=== PATIENT | male | born 1950 | race Caucasian/White ===

== ENCOUNTER 2022-08-16 21:04 | Emergency (ER) | payer MEDICARE ==
[2022-08-16 21:12] VITALS: TEMP 97
[2022-08-16 22:04] LABS: Basophils # (A) 0.1 k/uL (0-0.2); Basophils % (A) 1 %; Eosinophils # (A) 0.3 k/uL (0-0.7); Eosinophils % (A) 4 %; HCT 48.3 % (39.0-53.0); HGB 16.7 gm/dL (13.0-17.5); Lymphocytes # (A) 1.3 k/uL (1.0-4.8); Lymphocytes % (A) 18 %; MCH 31.7 pg (25.0-35.0); MCHC 34.6 g/dL (31.0-37.0); MCV 91.6 fL (80.0-100.0); Mean Platelet Volume 7.1; Monocytes # (A) 0.4 k/uL (0-1.0); Monocytes % (A) 5 %; Neutrophils # (A) 5.1 k/uL (1.3-7.7); Neutrophils % (A) 70 %; Platelet Count 242 k/uL (150-450); RBC 5.27 m/uL (4.30-5.90); RDW 12.9 % (11.5-15.5); WBC 7.2 k/uL (3.8-10.6)
[2022-08-16 22:13] LABS: INR 0.9 (<1.2); Partial Thromboplastin Time 26.5 sec (22.0-30.0); Prothrombin Time 9.7 sec (9.0-12.0)
[2022-08-16 22:16] LABS: ALT 19 U/L (4-49); AST 24 U/L (17-59); African American GFR (CKD) >90 (>60 ml/min/1.73 sqM); Albumin 4.6 g/dL (3.5-5.0); Alkaline Phosphatase 99 U/L (38-126); Anion Gap 10 mmol/L; Blood Urea Nitrogen 12 mg/dL (9-20); Calcium 9.4 mg/dL (8.4-10.2); Carbon Dioxide 26 mmol/L (22-30); Chloride 106 mmol/L (98-107); Glucose 93 mg/dL (74-99); Lipase 90 U/L (23-300); Magnesium 2.2 mg/dL (1.6-2.3); Non-African American GFR(CKD) >90 (>60 ml/min/1.73 sqM); Potassium 3.6 mmol/L (3.5-5.1); Sodium 142 mmol/L (137-145); Total Bilirubin 0.5 mg/dL (0.2-1.3); Total Protein 7.5 g/dL (6.3-8.2)
--- NOTE | 2022-08-16 23:14 | CT ---
EXAMINATION TYPE: CT abdomen pelvis w con DATE OF EXAM: 08/16/2022 COMPARISON: None HISTORY: rectal bleeding CT DLP: 897 mGycm Automated exposure control for dose reduction was used. CONTRAST: Performed with IV Contrast, patient injected with 100 mL of Isovue 300. Images obtained from the diaphragm to the floor the pelvis with the IV contrast. The lung bases are clear of infiltrate. No pleural effusion. There is minimal subsegmental atelectasi s at the lung bases. Heart size is normal. No pericardial effusion. There is 1 cm cyst in the anterio r left lobe of the liver. Gallbladder appears normal. The bile ducts are not dilated. Spleen appears normal. There is no pancreatic mass. The stomach is intact. There is no adrenal mass. Kidneys show satisfactory contrast opacification. No hydronephrosis. Ureter s are not dilated. No retroperitoneal adenopathy. The bladder distends smoothly. No inguinal hernia. No free fluid in the pelvis. No pelvic mass. Appendix is posterior and appears normal. There is fat-c ontaining 4 cm umbilical hernia. There is no mesenteric edema. No ascites or free air. No sign of bowel obstruction. There is some cir cumferential thickening of the wall of the rectum with some mild adjacent fat stranding. The lumbar vertebra show fairly normal alignment. There is a minimal degenerative first-degree L4-5 s pondylolisthesis. No lumbar compression fracture. The bony pelvis is intact. There is degenerative cy st formation in the left acetabulum. There is acetabular spur formation. IMPRESSION: There is some wall thickening of the rectum with fat stranding and consistent with focal colitis. Normal appendix. Large fat-containing umbilical hernia. There are a few sigmoid diverticula without diverticulitis.
[2022-08-16] MEDS ORDERED: AMOXIC-POT CLAV 875-125MG 1 EACH TAB PO STA (23:52)
--- NOTE | 2022-08-16 23:56 | ED ---
GI Bleed HPI - General Chief complaint: GI Bleed Stated complaint: rectal issues Time Seen by Provider: 08/16/22 21:10 Source: patient, family Mode of arrival: ambulatory Limitations: no limitations - History of Present Illness Initial comments: 72-year-old male with past history of hypertension presents to the emergency department with reported rectal bleeding. States that he has had intermittent bleeding for the past 8 months. It is also associated with some constipation. States that as of 3 weeks ago the bleeding has become more frequent. Admits to some dark clotted blood with some bright blood. Denies any abdominal pain or rectal pain. He has never had a colonoscopy. No history of colon cancer. He denies fevers, nausea or vomiting. He does not take any anticoagulants. Admits to a good appetite. No weight loss. Denies any abdominal bloating. No numbness, tingling or weakness in his legs. Denies any lightheadedness, shortness of breath or dizziness. He has no primary care physician and has not had his issue addressed. No other alleviating, precipitating or modifying factors - Related Data Previous Rx's Medication Instructions Recorded Amoxic-Pot Clav 875-125Mg 1 tab PO BID #14 tab 08/16/22 [Augmentin 875-125] Allergies Allergy/AdvReac Type Severity Reaction Status Date / Time No Known Allergies Allergy Verified 08/16/22 21:12 Review of Systems ROS Statement: Those systems with pertinent positive or pertinent negative responses have been documented in the HPI. ROS Other: All systems not noted in ROS Statement are negative. Past Medical History Past Medical History: Hypertension Additional Past Surgical History / Comment(s): LEFT ARM REVISION Past Psychological History: No Psychological Hx Reported Smoking Status: Never smoker Past Alcohol Use History: None Reported General Exam Limitations: no limitations General appearance: alert, in no apparent distress Head exam: Present: atraumatic, normocephalic, normal inspection Eye exam: Present: normal appearance, PERRL, EOMI. Absent: scleral icterus, conjunctival injection, periorbital swelling ENT exam: Present: normal exam, mucous membranes moist Neck exam: Present: normal inspection. Absent: tenderness, meningismus, lymphadenopathy Respiratory exam: Present: normal lung sounds bilaterally. Absent: respiratory distress, wheezes, rales, rhonchi, stridor Cardiovascular Exam: Present: regular rate, normal rhythm, normal heart sounds. Absent: systolic murmur, diastolic murmur, rubs, gallop, clicks GI/Abdominal exam: Present: soft, normal bowel sounds. Absent: distended, tenderness, guarding, rebound, rigid Rectal exam: Present: normal rectal tone, heme (+) stool, black stool, hemorr hoids. Absent: mass, tenderness Extremities exam: Present: normal inspection, full ROM, normal capillary refill. Absent: tenderness, pedal edema, joint swelling, calf tenderness Back exam: Present: normal inspection Neurological exam: Present: alert, oriented X3, CN II-XII intact Psychiatric exam: Present: normal affect, normal mood Skin exam: Present: warm, dry, intact, normal color. Absent: rash Course Vital Signs 08/16/22 08/16/22 08/16/22 21:08 22:00 22:02 Temperature 97 F L Pulse Rate 77 84 Respiratory 20 16 Rate Blood Pressure 195/93 178/100 O2 Sat by Pulse 97 95 Oximetry 08/17/22 00:12 Temperature Pulse Rate 68 Respiratory 18 Rate Blood Pressure 173/97 O2 Sat by Pulse 97 Oximetry Medical Decision Making - Medical Decision Making Upon arrival patient was placed in room 7. A thorough history and physical exam was performed. Rectal exam is performed which does demonstrate a small amount of red stool. Laboratory studies are conducted which demonstrates a hemoglobin of 16.7. Occult is positive. CT of the abdomen and pelvis is performed which demonstrated some thickening around the rectum concerning for possible colitis. I did discuss results with the patient. He remained pain-free and symptom-free. States that he would prefer to follow up outpatient for his bleeding that has been going on for the past 8 months. He would like to follow up with Dr. Santana who is a colorectal surgeon out of [facility]. The patient is provided with information for Dr. Jay as well as for Dr. santana. He'll be placed on antibiotics for the questionable focal colitis. He is to call to make an appointment as he needs a colonoscopy for further workup. Patient understood this. Instructed to return to the emergency department should he have any new or worsening symptoms or increased bleeding. Patient discharged home in stable condition - Lab Data Result diagrams: 08/16/22 21:58 08/16/22 21:58 Lab Results 08/16/22 08/16/22 08/16/22 Range/Units 21:58 21:58 21:58 WBC 7.2 (3.8-10.6) k/uL RBC 5.27 (4.30-5.90) m/uL Hgb 16.7 (13.0-17.5) gm/dL Hct 48.3 (39.0-53.0) % MCV 91.6 (80.0-100.0) fL MCH 31.7 (25.0-35.0) pg MCHC 34.6 (31.0-37.0) g/dL RDW 12.9 (11.5-15.5) % Plt Count 242 (150-450) k/uL MPV 7.1 Neutrophils % 70 % Lymphocytes % 18 % Monocytes % 5 % Eosinophils % 4 % Basophils % 1 % Neutrophils # 5.1 (1.3-7.7) k/uL Lymphocytes # 1.3 (1.0-4.8) k/uL Monocytes # 0.4 (0-1.0) k/uL Eosinophils # 0.3 (0-0.7) k/uL Basophils # 0.1 (0-0.2) k/uL PT 9.7 (9.0-12.0) sec INR 0.9 (<1.2) APTT 26.5 (22.0-30.0) sec Sodium (137-145) mmol/L Potassium (3.5-5.1) mmol/L Chloride (98-107) mmol/L Carbon Dioxide (22-30) mmol/L Anion Gap mmol/L BUN (9-20) mg/dL Creatinine (0.66-1.25) mg/dL Est GFR (CKD-EPI)AfAm (>60 ml/min/1.73 sqM) Est GFR (CKD-EPI)NonAf (>60 ml/min/1.73 sqM) Glucose (74-99) mg/dL Plasma Lactic Acid [place] (0.7-2.0) mmol/L Calcium (8.4-10.2) mg/dL Magnesium (1.6-2.3) mg/dL Total Bilirubin (0.2-1.3) mg/dL AST (17-59) U/L ALT (4-49) U/L Alkaline Phosphatase (38-126) U/L Troponin I (0.000-0.034) ng/mL Total Protein (6.3-8.2) g/dL Albumin (3.5-5.0) g/dL Lipase (23-300) U/L Stool Occult Blood Positive (Negative) 08/16/22 08/16/22 08/16/22 Range/Units 21:58 21:58 21:58 WBC (3.8-10.6) k/uL RBC (4.30-5.90) m/uL Hgb (13.0-17.5) gm/dL Hct (39.0-53.0) % MCV (80.0-100.0) fL MCH (25.0-35.0) pg MCHC (31.0-37.0) g/dL RDW (11.5-15.5) % Plt Count (150-450) k/uL MPV Neutrophils % % Lymphocytes % % Monocytes % % Eosinophils % % Basophils % % Neutrophils # (1.3-7.7) k/uL Lymphocytes # (1.0-4.8) k/uL Monocytes # (0-1.0) k/uL Eosinophils # (0-0.7) k/uL Basophils # (0-0.2) k/uL PT (9.0-12.0) sec INR (<1.2) APTT (22.0-30.0) sec Sodium 142 (137-145) mmol/L Potassium 3.6 (3.5-5.1) mmol/L Chloride 106 (98-107) mmol/L Carbon Dioxide 26 (22-30) mmol/L Anion Gap 10 mmol/L BUN 12 (9-20) mg/dL Creatinine 0.69 (0.66-1.25) mg/dL Est GFR (CKD-EPI)AfAm >90 (>60 ml/min/1.73 sqM) Est GFR (CKD-EPI)NonAf >90 (>60 ml/min/1.73 sqM) Glucose 93 (74-99) mg/dL Plasma Lactic Acid [place] 0.9 (0.7-2.0) mmol/L Calcium 9.4 (8.4-10.2) mg/dL Magnesium 2.2 (1.6-2.3) mg/dL Total Bilirubin 0.5 (0.2-1.3) mg/dL AST 24 (17-59) U/L ALT 19 (4-49) U/L Alkaline Phosphatase 99 (38-126) U/L Troponin I <0.012 (0.000-0.034) ng/mL Total Protein 7.5 (6.3-8.2) g/dL Albumin 4.6 (3.5-5.0) g/dL Lipase 90 (23-300) U/L Stool Occult Blood (Negative) Disposition Clinical Impression: Hematochezia, GI bleed, Colitis Disposition: HOME SELF-CARE Condition: Stable Instructions (If sedation given, give patient instructions): Gastrointestinal Bleeding (ED), Colitis (ED) Additional Instructions: You need a colonoscopy. Please call Dr. Santana or Dr. Jay for a colonoscop y. Take the antibiotics. Return for any new or worsening symptoms. Dr. Santana - Prescriptions: Amoxic-Pot Clav 875-125Mg [Augmentin 875-125] 1 tab PO BID #14 tab Is patient prescribed a controlled substance at d/c from ED?: No Referrals: Bertrand Jay MD [STAFF PHYSICIAN] - 1-2 days Time of Disposition: 23:55
[2022-08-17 00:13] VITALS: BP 173/97; PULSE 68; RESP 18
== END 2022-08-17 00:13 | disposition home or self-care (01) ==
LOC: EC 21:04
DX: K62.5 Hemorrhage of anus and rectum (principal); K52.9 Noninfective gastroenteritis and colitis, unspecified; I10 Essential (primary) hypertension
CPT/HCPCS: 36415; 80053; 83605; 83690; 83735; 84484; 85025; 85610; 85730; 82272; 74177; 99285; Q9967

== ENCOUNTER 2022-09-12 13:30 | Inpatient (IN) | payer MEDICARE, OTHER ==
--- NOTE | 2022-09-12 14:30 | XR ---
EXAMINATION TYPE: XR KUB DATE OF EXAM: 09/12/2022 Comparison: None Clinical History: 72-year-old male abdominal pain Findings: Lung bases are clear. No evidence for free intraperitoneal air. A few small air-fluid levels in the upper to mid abdomen. Small bowel here is borderline distended up to 2.9 cm. There is mild overall stool burden, more moderate in the right-sided the abdomen. Air ext ends distally to the rectum. No suspicious calcification is seen. Right-sided pelvic phlebolith. Impression: 1. Small air-fluid levels in the midabdomen. A couple small bowel loops are borderline distended up t o 2.9 cm. Air remains present throughout the colon. Overall findings suggest ileus or enteritis rathe r than small bowel obstruction. 2. Mild overall stool burden, more moderate in the right side of the abdomen.
[2022-09-12 14:38] LABS: Basophils # (A) 0.1 k/uL (0-0.2); Basophils % (A) 1 %; Eosinophils # (A) 0.2 k/uL (0-0.7); Eosinophils % (A) 2 %; HCT 47.3 % (39.0-53.0); HGB 16.3 gm/dL (13.0-17.5); Lymphocytes % (A) 14 %; MCH 31.7 pg (25.0-35.0); MCHC 34.6 g/dL (31.0-37.0); MCV 91.7 fL (80.0-100.0); Mean Platelet Volume 7.5; Monocytes # (A) 0.4 k/uL (0-1.0); Monocytes % (A) 6 %; Neutrophils # (A) 5.4 k/uL (1.3-7.7); Neutrophils % (A) 76 %; Platelet Count 221 k/uL (150-450); RBC 5.15 m/uL (4.30-5.90); RDW 12.7 % (11.5-15.5); WBC 7.1 k/uL (3.8-10.6)
[2022-09-12 14:50] LABS: INR 0.9 (<1.2); Partial Thromboplastin Time 27.6 sec (22.0-30.0)
[2022-09-12 15:17] LABS: ALT 18 U/L (4-49); AST 23 U/L (17-59); African American GFR (CKD) >90 (>60 ml/min/1.73 sqM); Albumin 4.4 g/dL (3.5-5.0); Alkaline Phosphatase 86 U/L (38-126); Amylase 50 U/L (30-110); Anion Gap 8 mmol/L; Blood Urea Nitrogen 11 mg/dL (9-20); Calcium 9.1 mg/dL (8.4-10.2); Carbon Dioxide 24 mmol/L (22-30); Chloride 108 mmol/L (98-107); Glucose 89 mg/dL (74-99); Lipase 51 U/L (23-300); Non-African American GFR(CKD) >90 (>60 ml/min/1.73 sqM); Potassium 3.9 mmol/L (3.5-5.1); Sodium 140 mmol/L (137-145); Total Bilirubin 0.9 mg/dL (0.2-1.3)
--- NOTE | 2022-09-12 16:13 | ED ---
Abdominal Pain HPI - General Chief Complaint: Abdominal Pain Stated Complaint: Abd pain, colon issues Time Seen by Provider: 09/12/22 16:11 Source: patient, family Mode of arrival: ambulatory Limitations: no limitations - History of Present Illness Initial Comments: 72-year-old male with past medical history of hypertension presents to emergency department with dark rectal bleeding. Patient was seen in the emergency department with similar complaint on August 16. Laboratory studies were completed and a CT was performed. Ct did demonstrate some colitis. Patient preferred outpatient management and therefore was placed on antibiotics and discharged home. Instructed to follow-up with surgery or GI to have a colonoscopy performed. Patient admits that he went home and did not call a surgeon until 2 weeks later. Surgeon in [facility] is unable to get him in for another month. He continues to have bright red blood and dark rectal bleeding. He has now developed some generalized abdominal pain. No fevers. Patient has never had a colonoscopy. He is not on any blood thinners. No other alleviating, precipitating or modifying factors - Related Data Previous Rx's Medication Instructions Recorded Azithromycin [Zithromax Z Pack] 1 tab PO DIRECTED #6 tab 09/13/22 Metoprolol Succinate (ER) [Toprol 25 mg PO BID #180 tab 09/13/22 XL] Pantoprazole [Protonix] 40 mg PO DAILY #90 tab 09/13/22 lisinopriL [Zestril] 5 mg PO DAILY #90 tab 09/13/22 Allergies Allergy/AdvReac Type Severity Reaction Status Date / Time No Known Allergies Allergy Verified 09/12/22 17:01 Review of Systems ROS Statement: Those systems with pertinent positive or pertinent negative responses have been documented in the HPI. ROS Other: All systems not noted in ROS Statement are negative. Past Medical History Past Medical History: Hypertension Additional Past Medical History / Comment(s): colitis Additional Past Surgical History / Comment(s): LEFT ARM REVISION Past Psychological History: No Psychological Hx Reported Smoking Status: Never smoker Past Alcohol Use History: None Reported General Exam Limitations: no limitations General appearance: alert, in no apparent distress Head exam: Present: atraumatic, normocephalic, normal inspection Eye exam: Present: normal appearance, PERRL, EOMI. Absent: scleral icterus, conjunctival injection, periorbital swelling ENT exam: Present: normal exam, mucous membranes moist Neck exam: Present: normal inspection. Absent: tenderness, meningismus, lymphadenopathy Respiratory exam: Present: normal lung sounds bilaterally. Absent: respiratory distress, wheezes, rales, rhonchi, stridor Cardiovascular Exam: Present: regular rate, normal rhythm, normal heart sounds. Absent: systolic murmur, diastolic murmur, rubs, gallop, clicks GI/Abdominal exam: Present: soft, tenderness (generalized), normal bowel sounds. Absent: distended, guarding, rebound, rigid Extremities exam: Present: normal inspection, full ROM, normal capillary refill. Absent: tenderness, pedal edema, joint swelling, calf tenderness Back exam: Present: normal inspection Neurological exam: Present: alert, oriented X3, CN II-XII intact Psychiatric exam: Present: normal affect, normal mood Skin exam: Present: warm, dry, intact, normal color. Absent: rash Course Vital Signs 09/12/22 09/12/22 09/12/22 13:57 18:36 20:35 Temperature 98 F 98.1 F Pulse Rate 76 66 Pulse Rate [ 78 Pulse Oximetery ] Respiratory 20 18 16 Rate Blood Pressure 187/97 168/98 Blood Pressure 192/97 [Right Arm Sitting] O2 Sat by Pulse 97 97 96 Oximetry Medical Decision Making - Medical Decision Making Was pt. sent in by a medical professional or institution? No Did you speak to anyone other than the patient for history? Patient's and [id number] Did you review nursing and triage notes? Yes and I agree Were old charts reviewed? Chart from last ER visit was reviewed Differential Diagnosis? Appendicitis, cholecystitis, diverticulosis, ischemic bowel, pancreatitis, hepatitis, UTI, gastroenteritis, AAA, incarcerated hernia, bowel obstruction, constipation, inflammatory bowel, hepatitis, peptic ulcer disease, splenic infarction, perforated viscus, testicular torsion... This is not meant to be an all-inclusive list EKG interpreted by me (3pts min.)? Yes X-rays interpreted by me (1pt min.)? Yes CT interpreted by me (1pt min.)? No U/S interpreted by me (1pt. min.)? No What testing was considered but not performed? (CT, X-rays, U/S, labs)? Why? CT however this was completed during last ER visit for same complaint What meds were considered but not given? Why? Pain medications - patient refused Did you discuss the management of the patient with other professionals? Admitting physician Did you reconcile home meds? Yes Was smoking cessation discussed for >3mins.? No Was critical care preformed (if so, how long)? No Were there social determinants of health that impacted care today? How? (Homelessness, low income, unemployed, alcoholism, drug addiction, transportation, low edu. Level, literacy, decrease access to med. care, [facility], rehab)? [place] to see a surgeon and obtain colonoscopy Was there de-escalation of care discussed even if they declined? (Discuss DNR or withdrawal of care, Hospice)? No What co-morbidities impacted this encounter? (DM, HTN, Smoking, COPD, CAD, Cancer, CVA, Hep., AIDS, mental health diagnosis, sleep apnea, morbid obesity)? None Was patient admitted / discharged? @Upon arrival patient was placed into almaguer bed 20. A thorough history and physical exam was performed. IV access is established and laboratory studies were conducted. Hemoglobin stable at 16.3. X-ray was performed which demonstrates an ileus. As the patient does have persistent with inability to follow up outpatient and progression to ileus, I did recommend admission for GI consultation. Patient was agreeable to this. We will trend his hemoglobin. I spoke with Dr. Armando reed who agreed to admit the patient Undiagnosed new problem with uncertain prognosis? Yes Drug Therapy requiring intensive monitoring for toxicity (Heparin, Nitro, Insulin, Cardizem)? None Were any procedures done? None Diagnosis/symptom? Gi Bleed Acute, or Chronic, or Acute on Chronic? acute Uncomplicated (without systemic symptoms) or Complicated (systemic symptoms)? complicated Side effects of treatment? None Exacerbation, Progression, or Severe Exacerbation] Progression Poses a threat to life or bodily function? Yes - Lab Data Result diagrams: 09/13/22 06:21 09/13/22 06:21 Lab Results 09/12/22 09/12/22 09/12/22 Range/Units 14:06 14:06 14:06 WBC 7.1 (3.8-10.6) k/uL RBC 5.15 (4.30-5.90) m/uL Hgb 16.3 (13.0-17.5) gm/dL Hct 47.3 (39.0-53.0) % MCV 91.7 (80.0-100.0) fL MCH 31.7 (25.0-35.0) pg MCHC 34.6 (31.0-37.0) g/dL RDW 12.7 (11.5-15.5) % Plt Count 221 (150-450) k/uL MPV 7.5 Neutrophils % 76 % Lymphocytes % 14 % Monocytes % 6 % Eosinophils % 2 % Basophils % 1 % Neutrophils # 5.4 (1.3-7.7) k/uL Lymphocytes # 1.0 (1.0-4.8) k/uL Monocytes # 0.4 (0-1.0) k/uL Eosinophils # 0.2 (0-0.7) k/uL Basophils # 0.1 (0-0.2) k/uL PT 10.0 (9.0-12.0) sec INR 0.9 (<1.2) APTT 27.6 (22.0-30.0) sec Sodium 140 (137-145) mmol/L Potassium 3.9 (3.5-5.1) mmol/L Chloride 108 H (98-107) mmol/L Carbon Dioxide 24 (22-30) mmol/L Anion Gap 8 mmol/L BUN 11 (9-20) mg/dL Creatinine 0.63 L (0.66-1.25) mg/dL Est GFR (CKD-EPI)AfAm >90 (>60 ml/min/1.73 sqM) Est GFR (CKD-EPI)NonAf >90 (>60 ml/min/1.73 sqM) Glucose 89 (74-99) mg/dL Calcium 9.1 (8.4-10.2) mg/dL Total Bilirubin 0.9 (0.2-1.3) mg/dL AST 23 (17-59) U/L ALT 18 (4-49) U/L Alkaline Phosphatase 86 (38-126) U/L Troponin I (0.000-0.034) ng/mL Total Protein 7.0 (6.3-8.2) g/dL Albumin 4.4 (3.5-5.0) g/dL Amylase 50 (30-110) U/L Lipase 51 (23-300) U/L Blood Type Blood Type Recheck Bld Type Recheck Status Antibody Screen Spec Expiration Date 09/12/22 09/12/22 Range/Units 14:06 16:30 WBC (3.8-10.6) k/uL RBC (4.30-5.90) m/uL Hgb (13.0-17.5) gm/dL Hct (39.0-53.0) % MCV (80.0-100.0) fL MCH (25.0-35.0) pg MCHC (31.0-37.0) g/dL RDW (11.5-15.5) % Plt Count (150-450) k/uL MPV Neutrophils % % Lymphocytes % % Monocytes % % Eosinophils % % Basophils % % Neutrophils # (1.3-7.7) k/uL Lymphocytes # (1.0-4.8) k/uL Monocytes # (0-1.0) k/uL Eosinophils # (0-0.7) k/uL Basophils # (0-0.2) k/uL PT (9.0-12.0) sec INR (<1.2) APTT (22.0-30.0) sec Sodium (137-145) mmol/L Potassium (3.5-5.1) mmol/L Chloride (98-107) mmol/L Carbon Dioxide (22-30) mmol/L Anion Gap mmol/L BUN (9-20) mg/dL Creatinine (0.66-1.25) mg/dL Est GFR (CKD-EPI)AfAm (>60 ml/min/1.73 sqM) Est GFR (CKD-EPI)NonAf (>60 ml/min/1.73 sqM) Glucose (74-99) mg/dL Calcium (8.4-10.2) mg/dL Total Bilirubin (0.2-1.3) mg/dL AST (17-59) U/L ALT (4-49) U/L Alkaline Phosphatase (38-126) U/L Troponin I <0.012 (0.000-0.034) ng/mL Total Protein (6.3-8.2) g/dL Albumin (3.5-5.0) g/dL Amylase (30-110) U/L Lipase (23-300) U/L Blood Type O Positive Blood Type Recheck No Previous Record Bld Type Recheck Status CABO Indicated Antibody Screen NEGATIVE Spec Expiration Date 09/15/2022 8345 - EKG Data EKG Comments: EKG demonstrates sinus rhythm with a rate of 71. OK interval 166. QRS 80. QTC 398. No acute ST segment elevations or depressions Disposition Clinical Impression: GI bleed, Abdominal pain, Ileus Disposition: ADMITTED IP TO THIS HOSP Condition: Stable Is patient prescribed a controlled substance at d/c from ED?: No Time of Disposition: 17:39 Decision to Admit Reason: Admit from EC Decision Date: 09/12/22 Decision Time: 17:40
[2022-09-12] MEDS ORDERED: NALOXONE 0.4 MG/ML 1 ML VIAL IV PRN (17:40)
[2022-09-12] MEDS ORDERED: hydrALAZINE HCL 20 MG/ML 1 ML VIAL IVP PRN (18:05)
[2022-09-12] MEDS ORDERED: IPRATROPIUM-ALBUTEROL 3 ML NEB INHALATION PRN (18:24)
[2022-09-12] MEDS: PANTOPRAZOLE 40 MG/10 ML VIAL IV SCH (18:27)
[2022-09-12] MEDS: SODIUM CHLORIDE 0.9% 1,000 ML IV SCH (18:30)
--- NOTE | 2022-09-12 18:31 | P.HPIM ---
History of Present Illness H&P Date: 09/12/22 This is a pleasant 72-year-old male presents to [facility] with rectal bleeding. Patient was here month ago for the same chief complaint. Patient was advised to have a colonoscopy with a supervisor [employer] on an outpatient basis. However, due to patient delay in issues with scheduling patient has not been able to get an appointment until next month. Due to persistent symptoms, patient returns to the ER for further management. CT of the abdomen and pelvis with contrast done on 08/16/2022 showed some wall thickening of the rectum with fat stranding consistent with focal colitis. At that time, patient was treated with antibiotics and was told to follow with GI. Patient states that he has had strained stool and rectal bleeding on and off for the past 6 months. Symptoms have worsened over the past 3 months. Patient states that he has about 15 very small bowel movements a day. Patient denies night sweats fever or chills. Patient has lost 35 pounds over the past year. Patient has never had a colonoscopy. Patient denies chest pain or shortness of breath at this time. However, patient does have intermittent chest pain and shortness of breath with exertion. Per patient, he thinks that everyone does. When asked about his high blood pressure, patient states that he has always had it. Patient has not sought out treatment for his hypertension. Patient states that he is thinking about it. He does not see a PCP on a regular basis. Review of Systems A 14 point review of systems was assessed patient was only positive for those pe rtinent in HPI Past Medical History Past Medical History: Hypertension Additional Past Medical History / Comment(s): colitis Additional Past Surgical History / Comment(s): LEFT ARM REVISION Past Psychological History: No Psychological Hx Reported Smoking Status: Never smoker Past Alcohol Use History: None Reported Medications and Allergies Home Medications Medication Instructions Recorded Confirmed Type No Known Home Medications 09/12/22 09/12/22 History Allergies Allergy/AdvReac Type Severity Reaction Status Date / Time No Known Allergies Allergy Verified 09/12/22 17:01 Physical Exam Osteopathic Statement: *. No significant issues noted on an osteopathic structural exam other than those noted in the History and Physical/Consult. Vitals: Vital Signs Temp Pulse Resp BP Pulse Ox 09/12/22 13:57 98 F 76 20 187/97 97 Intake and Output 0109/12/22 09/12/22 06:59 14:59 22:59 Other: Weight 78.471 kg General: [non toxic], [no distress], [appears at stated age] Derm: [warm], [dry] Head: [atraumatic], [normocephalic], [symmetric] Eyes: [EOMI], [no lid lag], [anicteric sclera] Mouth: [no lip lesion], [mucus membranes moist] Cardiovascular: [S1S2 reg], [no murmur], [positive posterior tibial pulse bilateral], Lungs: [CTA bilateral], [no rhonchi, no rales] , [no accessory muscle use] Abdominal: [soft], [ reducible umbilical hernia tender to palpation, [no guarding], [no appreciable organomegaly] Ext: [no gross muscle atrophy], [no edema], [no contractures] Neuro: [ CN II-XI grossly intact], [no focal neuro deficits] Psych: [Alert], [oriented], [appropriate affect] Results CBC & Chem 7: 09/12/22 14:06 09/12/22 14:06 Labs: Abnormal Lab Results - Last 24 Hours (Table) 09/12/22 Range/Units 14:06 Chloride 108 H (98-107) mmol/L Creatinine 0.63 L (0.66-1.25) mg/dL Thrombosis Risk Factor Assmnt - DVT/VTE Prophylaxis DVT/VTE Prophylaxis: Mechanical Prophylaxis ordered Assessment and Plan Assessment: 1. Rectal bleeding with weight loss and abnormal imaging on CT concern for malignancy Consult GI for colonoscopy PPI IV Trend CBC every 8 hours Telemetry IV fluids 2. Hypertensive urgency Toprol 25 mg by mouth twice a day with parameters placed Check EKG Check echo with history chest pain and shortness of breath Chest x-ray ordered check troponin x 3 screening labs ordered 3. GI/DVT prophylaxis 4. AM labs CODE STATUS: Full code Anticipated length of stay: Greater than 2 midnights Rated and 45 minutes spent coordinating care, documenting, speaking with family, and counseling patient. Time with Patient: Greater than 30
[2022-09-12 21:15] LABS: Glucose,Whole Blood 128 mg/dL (70-110)
[2022-09-12] MEDS: METOPROLOL SUCCINATE (ER) 25 MG TAB.ER.24H PO SCH (21:46)
--- NOTE | 2022-09-12 21:54 | XR ---
EXAMINATION: XR chest 2V: 09/12/2022 7:04 PM CLINICAL INDICATION: shortness of breath TECHNIQUE: Departmental protocol COMPARISON: Lung base images from CT abdomen 08/16/2022 FINDINGS: The lungs are prominently well-expanded and clear bilaterally, but there is added opacity in the righ t infrahilar position and in the retrocardiac lung, mild findings which could correlate with a clinic al diagnosis of developing or resolving infiltrates. The pleural spaces are negative. The cardiac silhouette is not enlarged. The remainder of the mediastinal silhouette is unremarkable. The skeletal structures and soft tissues are negative for acute findings. IMPRESSION: Mild bibasilar opacities.
[2022-09-13] MEDS: SODIUM CHLORIDE 0.9% 1,000 ML IV SCH (06:50)
[2022-09-13 07:01] LABS: Basophils % (A) 1 %; Eosinophils # (A) 0.3 k/uL (0-0.7); Eosinophils % (A) 5 %; HCT 49.2 % (39.0-53.0); HGB 16.4 gm/dL (13.0-17.5); Lymphocytes # (A) 1.3 k/uL (1.0-4.8); Lymphocytes % (A) 19 %; MCH 30.9 pg (25.0-35.0); MCHC 33.2 g/dL (31.0-37.0); MCV 92.9 fL (80.0-100.0); Mean Platelet Volume 8.2; Monocytes # (A) 0.4 k/uL (0-1.0); Monocytes % (A) 6 %; Neutrophils # (A) 4.7 k/uL (1.3-7.7); Neutrophils % (A) 68 %; Platelet Count 223 k/uL (150-450); RDW 13.2 % (11.5-15.5); WBC 6.8 k/uL (3.8-10.6)
[2022-09-13 07:11] LABS: African American GFR (CKD) >90 (>60 ml/min/1.73 sqM); Anion Gap 8 mmol/L; Blood Urea Nitrogen 8 mg/dL (9-20); Calcium 9.2 mg/dL (8.4-10.2); Carbon Dioxide 25 mmol/L (22-30); Chloride 108 mmol/L (98-107); Glucose 89 mg/dL (74-99); Non-African American GFR(CKD) >90 (>60 ml/min/1.73 sqM); Sodium 141 mmol/L (137-145)
[2022-09-13] MEDS: METOPROLOL SUCCINATE (ER) 25 MG TAB.ER.24H PO SCH (08:20)
[2022-09-13] MEDS: PANTOPRAZOLE 40 MG/10 ML VIAL IV SCH (08:20)
--- NOTE | 2022-09-13 10:47 | P.CONS ---
History of Present Illness - Reason for Consult Consult date: 09/13/22 GI bleed, acute ileus Requesting physician: Kelsy Armas - Chief Complaint blood in stool - History of Present Illness This is a pleasant 72-year-old male with a past medical history of hypertension who presented to the emergency department with complaints of dark and bright red blood mixed in his stool. Patient apparently had been seen in the emergency room in early part of August underwent a CT of the abdomen and pelvis at that time on 08/16/2022 date reported some wall thickening of the rectum with fat stranding and consistent with focal colitis. Normal appendix large fat- containing bilateral local hernia in few sigmoid diverticula without diverticulitis. Patient's symptoms improved and patient was sent home told to follow-up with general surgeon or sales support specialist for outpatient colonoscopy. Patient states he failed to set up any appointments and then when he went recently to try and find a PCP he was unable to see anybody and decided to come back to the emergency department. He states that at times he will get some abdominal cramping but no acute abdominal pain. Yesterday afternoon was the last time he had any bleeding with his bowel movement. He has had several bowel movements since then which she states it just been brown. He states that he may go up to 15 loose stools a day, 3-4 times at night. His symptoms have been going on for the last 3-4 months duration. He states he has had problems with his bowels so for at least the last 1 year duration. On admission he had an x- ray that showed ileus versus enteritis. He has no nausea no vomiting. He is tolerating liquid diet. On admission he had a hemoglobin of 16 with a repeat hemoglobin today of 16.4. He denies any previous history of colonoscopy or EGD. Denies any previous history of peptic ulcer disease NSAID use her anticoagulation. Does state that he has had some constipation with a small possible cyst with loose stool over the last 3-4 days duration. Imaging KUB x-ray: Small air-fluid levels in the mid abdomen. Couple small bowel loops borderline distended up to 2.9 cm. Air remains present throughout colon. Overall findings suggest ileus or enteritis rather than small bowel obstruction. Mild overall stool burden, more moderate in the right side of the abdomen. Labs WBC 6.8 hemoglobin 16.4 hematocrit 49 platelet count 222,000 INR 0.9 sodium 141 potassium 4.0 BUN 8 creatinine 0.6 glucose 89 total bilirubin 0.9 AST 23 ALT 18 alkaline phosphatase 86 amylase 50 lipase 51 Review of Systems REVIEW OF SYSTEMS: CARDIOPULMONARY: No chest pain or shortness of breath. Gastrointestinal: No abdominal chase.. No nausea or vomiting. No hematemesis, coffee-ground emesis. Patient reports melena, stools mixed with dark blood as well as bright red blood at times. Has been going on for last at least 1 month duration GENIwith stooling issues for the last 1 year duration. Patient states he has mixed diarrhea with constipation. Constipation over the last 3-4 days duration.TOURINARY: No dysuria or hematuria. MUSCULOSKELETAL: Reports normal range of motion., Joint pain. SKIN: No rashes. No jaundice. ENDOCRINE: No chills, fevers. No excessive weight gain or loss. No polydipsia or polyuria. PSYCHIATRIC: Unremarkable. NEUROLOGY: No change in mental status. Denies dizziness, headache. ENT: Vision unremarkable. CONSTITUTIONAL: No recent weight loss. No fever, chills, night sweats. Past Medical History Past Medical History: Hypertension Additional Past Medical History / Comment(s): colitis History of Any Multi-Drug Resistant Organisms: None Reported Additional Past Surgical History / Comment(s): LEFT ARM REVISION Past Anesthesia/Blood Transfusion Reactions: No Reported Reaction Past Psychological History: No Psychological Hx Reported Smoking Status: Never smoker Past Alcohol Use History: None Reported Medications and Allergies Home Medications Medication Instructions Recorded Confirmed Type No Known Home Medications 09/12/22 09/12/22 History Allergies Allergy/AdvReac Type Severity Reaction Status Date / Time No Known Allergies Allergy Verified 09/12/22 17:01 Physical Exam Vitals: Vital Signs Temp Pulse Pulse Resp BP BP Pulse Ox 09/13/22 07:00 97.8 F 59 L 18 124/72 98 09/13/22 02:00 97.6 F 65 21 127/65 96 09/12/22 23:00 157/85 09/12/22 21:05 97.6 F 63 16 187/94 96 09/12/22 20:35 66 16 168/98 96 09/12/22 18:36 98.1 F 78 18 192/97 97 09/12/22 13:57 98 F 76 20 187/97 97 Intake and Output 09/12/22 09/13/22 09/13/22 22:59 06:59 14:59 Intake Total 675 Balance 675 Intake: IV 675 Sodium Chloride 0.9% 1, 675 000 ml @ 75 mls/hr IV . [id number] [facility] Rx#:[id number] Other: Voiding Method Toilet # Voids 4 # Bowel Movements 4 Weight 78.9 kg General appearance: The patient is alert, oriented, appears in no acute distress. HET: Head is normocephalic and atraumatic. Conjunctiva pink. Sclera anicteric. Neck: Supple without lymphadenopathy. Trachea midline. Heart: S1 S2. Regular rate and rhythm. Lungs: Clear to auscultation. Abdomen: Soft, nontender, nondistended with bowel sounds. No guarding or rigidity. Skin: No rashes. No jaundice. Extremities: Normal skin color and turgor. No pedal edema. Neurological: No focal deficits. Alert and oriented x3. Results CBC & Chem 7: 09/13/22 06:21 09/13/22 06:21 Labs: Abnormal Lab Results - Last 24 Hours (Table) 09/12/22 09/12/22 Range/Units 14:06 21:13 Chloride 108 H (98-107) mmol/L Creatinine 0.63 L (0.66-1.25) mg/dL POC Glucose (mg/dL) 128 H (70-110) mg/dL Comments: See HPI for details Assessment and Plan (1) GI bleed Narrative/Plan: 72-year-old male presented to the emergency department approximately one month ago with symptoms of abdominal discomfort and loose stool mixed with blood. At that time he was sent home with antibiotics for colitis. He was told to follow- up with a surgeon or sales support specialist for colonoscopy. Patient failed to do any follow-up care. He will reported back to the hospital with similar compl aints with diarrhea mixed with constipation and blood in his stool. Patient has a stable hemoglobin is 16.4. No further bleeding since his hospitalization. No previous history EGD colonoscopy. Unclear etiology of bleeding could be related to underlying colitis however need to consider other possible etiologies. Patient is not in any abdominal pain. There is no GI present in the hospital after today. Patient is stable at this time. He is agreeable for outpatient follow-up for EGD and colonoscopy. This has been scheduled with Dr. Marcus on 09/27/2022. Current Visit: Yes Status: Acute Code(s): K92.2 - GASTROINTESTINAL HEMORRHAGE, UNSPECIFIED SNOMED Code(s): 39290058 Plan: 1. Continue symptom and expiratory of care 2. Clear liquid diet advance as tolerated 3. Protonix 40 mg daily 4. No plans for endoscopic evaluation during this hospitalization. Patient agreeable for outpatient follow-up and is scheduled for EGD and colonoscopy on 09/27/[address] Marcus. Thank you for this consultation, patient is cleared for discharge from gastroenterology. Thank you for allowing us to participate in the care of the patient, the GI service will sign off, gastroenterology will not be available at the hospital this weekend and through next week. If further evaluation by gastroenterology is required the patient will need transfer as per the primary team's discretion. Dr. Cooper Marcus I agree with the dictator's note, documented as a scribe by Dixie Puckett.
[2022-09-13 11:19] VITALS: BP 164/96; PULSE 57; RESP 14; TEMP 97.4
[2022-09-13] MEDS ORDERED: lisinopriL 5 MG TAB PO SCH (12:45)
--- NOTE | 2022-09-13 13:07 | P.DS ---
Providers Date of admission: 09/12/22 17:40 Expected date of discharge: 09/13/22 Attending physician: Pawan Garcia MD Consults: 09/12/22 17:40 Consult Physician Urgent Consulting Provider: Cammie Marcus Consult Reason/Comments: gi bleed, acute ileus Do you want consulting provider notified?: Yes Primary care physician: Stated None Hospital Course: Admitting diagnoses: Rectal bleeding Discharge diagnoses: Rectal bleeding concern for malignancy Hypertension This is a pleasant 72-year-old male presents to [facility] with rectal bleeding. Patient was here month ago for the same chief complaint. Patient was advised to have a colonoscopy with a configuration management specialist on an outpatient basis. However, due to patient delay in issues with scheduling p atient has not been able to get an appointment until next month. Due to persistent symptoms, patient returns to the ER for further management. CT of the abdomen and pelvis with contrast done on 08/16/2022 showed some wall thickening of the rectum with fat stranding consistent with focal colitis. At that time, patient was treated with antibiotics and was told to follow with GI. Patient states that he has had strained stool and rectal bleeding on and off for the past 6 months. Symptoms have worsened over the past 3 months. Patient states that he has about 15 very small bowel movements a day. Patient denies night sweats fever or chills. Patient has lost 35 pounds over the past year. Patient has never had a colonoscopy. Patient denies chest pain or shortness of breath at this time. However, patient does have intermittent chest pain and shortness of breath with exertion. Per patient, he thinks that everyone does. When asked about his high blood pressure, patient states that he has always had it. Patient has not sought out treatment for his hypertension. Patient states that he is thinking about it. He does not see a PCP on a regular basis. General: [non toxic], [no distress], [appears at stated age] Derm: [warm], [dry] Head: [atraumatic], [normocephalic], [symmetric] Eyes: [EOMI], [no lid lag], [anicteric sclera] Mouth: [no lip lesion], [mucus membranes moist] Cardiovascular: [S1S2 reg], [no murmur], [positive posterior tibial pulse bilateral], Lungs: [CTA bilateral], [no rhonchi, no rales] , [no accessory muscle use] Abdominal: [soft], [ reducible umbilical hernia], [no guarding], [no appreciable organomegaly] Ext: [no gross muscle atrophy], [no edema], [no contractures] Neuro: [ CN II-XI grossly intact], [no focal neuro deficits] Psych: [Alert], [oriented], [appropriate affect] Clinical course: 1. Rectal bleeding with weight loss and abnormal imaging on CT concern for malignancy Consult GI for colonoscopy patient will have it done as an outpatient PPI Trended CBC every 8 hours within normal limits Telemetry IV fluids provided 2. Hypertensive urgency resolved Toprol 25 mg by mouth twice a day with parameters placed Lisinopril added EKG normal check troponin x 3 3. Mild bibasilar opacities seen on chest x-ray which could be resulting prior infection however history is unknown She denies chest pain shortness of breath at this time add paulettepack Disposition: Home Activity: As tolerated Diet: Cardiac Condition: Fair Follow-up with PCP in 1-2 days Follow-up with gastroenterology in one week Patient Condition at Discharge: Stable Plan - Discharge Summary Discharge Rx Participant: Yes New Discharge Prescriptions: New Metoprolol Succinate (ER) [Toprol XL] 25 mg PO BID #180 tab lisinopriL [Zestril] 5 mg PO DAILY #90 tab Pantoprazole [Protonix] 40 mg PO DAILY #90 tab Discharge Medication List Metoprolol Succinate (ER) [Toprol XL] 25 mg PO BID #180 tab 09/13/22 [Rx] Pantoprazole [Protonix] 40 mg PO DAILY #90 tab 09/13/22 [Rx] lisinopriL [Zestril] 5 mg PO DAILY #90 tab 09/13/22 [Rx] Follow up Appointment(s)/Referral(s): Cammie Marcus MD [STAFF PHYSICIAN] - 09/27/22 (This appointment is for EGD/Colonoscopy at [facility]. The office and hospital will contact you regarding prep and time.) None,Stated [Primary Care Provider] - 1-2 days
[2022-09-13 15:30] LABS: Chol/HDL Ratio 3.79 Ratio; LDL Cholesterol,Calculated 82.4 mg/dL (0.0-131.0)
== END 2022-09-13 13:10 | disposition home or self-care (01) | DRG 378 ==
LOC: EC 13:30 → 4SSUR 17:40 → 2SICU 19:59
PROVIDERS: ADMIT Family Medicine; ATTEND Family Medicine
DX: K62.5 Hemorrhage of anus and rectum (principal); K56.7 Ileus, unspecified; I10 Essential (primary) hypertension; I16.0 Hypertensive urgency; Z28.310 Unvaccinated for COVID-19; K57.30 Diverticulosis of large intestine without perforation or abscess without bleeding; K52.9 Noninfective gastroenteritis and colitis, unspecified; R91.8 Other nonspecific abnormal finding of lung field
CPT/HCPCS: 36415; 71046; 74018; 80048; 80053; 80061; 82150; 83036; 83690; 84443; 84484; 85025; 85610; 85730; 86850; 86900; 86901; 93005; 96361; 96374; 96375; 99285; 99291

== ENCOUNTER 2022-09-27 08:34 | Day surgery (SDC) | payer MEDICARE, OTHER ==
[2022-09-26 10:46] VITALS: BMI 23.7
[2022-09-27] MEDS ORDERED: LACTATED RINGERS 1,000 ML IV SCH (08:35)
[2022-09-27 09:00] VITALS: TEMP 96.9
[2022-09-27] MEDS ORDERED: LIDOCAINE 2% INJ 20 MG/ML (2 ML VIAL) ONE (09:44)
[2022-09-27] MEDS ORDERED: PROPOFOL 10 MG/ML 20 ML VIAL IV ONE (09:44)
--- NOTE | 2022-09-27 10:20 | P.PCN ---
Date of Procedure: 09/27/22 Procedure(s) Performed: Brief history: Patient is a pleasant 72-year-old white male scheduled for an elective upper endoscopy as well as colonoscopy as a part of evaluation of intermittent lower abdominal pain, change in bowel habits and intermittent rectal bleeding for the last 1 month duration. Procedure performed: Esophagogastroduodenoscopywith biopsy Colonoscopy with biopsy Preoperative diagnosis: Abdominal pain Change in bowel habits and intermittent rectal bleeding Anesthesia: MAC Procedure: After informed consent was obtained from the patient was brought into the endoscopy unit and IV sedation was administered by anesthesia under continuous monitoring. Initially upper endoscopy was done. The Olympus GF 160 video endoscope was inserted inserted into the mouth and esophagus intubated without any difficulty and was gradually advanced into the stomach and duodenum and carefully examined. The bulb and second part of the duodenum appeared normal. The scope was then withdrawn into the stomach adequately insufflated with air and upon careful examination the antrum had mild gastritis and biopsies were done from this area. body, cardia and fundus appeared normal. The scope was then withdrawn into the esophagus. The GE junction was located at 40 cm to the incisors. small hiatal hernia noted. It appeared regular with no erythema erosions or ulcerations. Rest of the esophagus appeared normal. Patient tolerated the procedure well. At this time the patient continued to remain sedation. Initial digital rectal examination revealed a hard distal rectal mass. Olympus CF 160 video colonoscope was then inserted into the rectum and the scope could not be advanced through the ulcerated mass. At this time the scope was removed and a pediatric colonoscopy was then introduced into the rectum and I was not able to advance the scope through the stricture in the distal rectum. At this time an upper scope was used and with gentle manipulation I was able to advance the scope through the mass and gradually advanced to the cecum without any difficulty. Careful examination was performed as the scope was gradually being withdrawn. The prep was fair. The cecum, ascending colon, transverse colon, descending colon, sigmoid colon appeared normal. There was a circumferential u lcerated distal rectal mass extending from the dentate line up to 10 cm proximally Retroflexion was performed in the rectum and no lesions were noted. Patient tolerated the procedure well. Impression: 1. Upper endoscopy revealed mild antral gastritis and small hiatal hernia. 2. Colonoscopy revealed a distal rectal circumferential ulcerated mass with luminal narrowing extending up to 10 cm from the dentate line status post multiple biopsies to evaluate for neoplasm Recommendations: Findings of this examination were discussed with the patient as well as his family. He was advised to follow with the biopsy results. He'll be seen in office in 1 week. I
[2022-09-27 11:02] VITALS: BP 128/78; PULSE 56; RESP 18
== END 2022-09-27 11:31 | disposition home or self-care (01) ==
LOC: ORWHC2ENDO 08:34
PROVIDERS: ATTEND Internal Medicine Gastroenterology
DX: K29.50 Unspecified chronic gastritis without bleeding (principal); K62.5 Hemorrhage of anus and rectum; K44.9 Diaphragmatic hernia without obstruction or gangrene; I10 Essential (primary) hypertension; K21.9 Gastro-esophageal reflux disease without esophagitis; Z79.899 Other long term (current) drug therapy
CPT/HCPCS: 45380; 43239; J2704; J2001; 88305

== ENCOUNTER 2024-03-16 06:16 | Day surgery (SDC) | payer MEDICARE, OTHER ==
[~2024-03-16 06:16] MED LIST: HEPARIN SODIUM,PORCINE 5,000 UNIT/ML 1 ML VIAL SQ PRN
[2024-03-16 06:47] VITALS: TEMP 97
[2024-03-16] MEDS: LACTATED RINGERS 1,000 ML IV SCH (06:56)
[2024-03-16] MEDS: DEXAMETHASONE SOD PHOSPHATE 4 MG/ML 1 ML VIAL IV ONE (06:56)
[2024-03-16] MEDS: ONDANSETRON 4 MG/2 ML VIAL IVP ONE (06:56)
[2024-03-16] MEDS: ACETAMINOPHEN TAB 500 MG TAB PO PRN (06:56)
[2024-03-16] MEDS ORDERED: HYDROmorphone 0.5 MG/0.5 ML SYRINGE IVP PRN (07:00)
[2024-03-16] MEDS ORDERED: MIDAZOLAM 2 MG/2 ML VIAL IV PRN (07:00)
[2024-03-16] MEDS: IV FLUID CONTINUATION 1,000 ML IV ONE (07:02)
[2024-03-16 07:04] LABS: Basophils % (A) 1 %; Eosinophils # (A) 0.5 k/uL (0-0.7); Eosinophils % (A) 9 %; HCT 45.2 % (39.0-53.0); Lymphocytes # (A) 0.7 k/uL (1.0-4.8); Lymphocytes % (A) 13 %; MCH 31.6 pg (25.0-35.0); MCHC 33.1 g/dL (31.0-37.0); MCV 95.3 fL (80.0-100.0); Mean Platelet Volume 7.6; Monocytes # (A) 0.4 k/uL (0-1.0); Monocytes % (A) 7 %; Neutrophils # (A) 3.6 k/uL (1.3-7.7); Neutrophils % (A) 68 %; Platelet Count 206 k/uL (150-450); RBC 4.74 m/uL (4.30-5.90); WBC 5.4 k/uL (3.8-10.6)
[2024-03-16] MEDS ORDERED: MIDAZOLAM 2 MG/2 ML VIAL ONE (07:30)
[2024-03-16] MEDS ORDERED: fentaNYL (PF) 50 MCG/ML 2 ML AMP ONE (07:30)
[2024-03-16] MEDS ORDERED: PROPOFOL 10 MG/ML 20 ML VIAL IV ONE (07:30)
[2024-03-16] MEDS: LIDOCAINE 1% INJ 10MG/ML (20 ML MDV) SQ ONE ×2 (07:44)
--- NOTE | 2024-03-16 08:04 | P.OP ---
Date of Procedure: 03/16/24 Preoperative Diagnosis: History of rectal cancer Postoperative Diagnosis: History of rectal cancer Procedure(s) Performed: Removal of right subclavian Port-A-Cath Anesthesia: VERO Surgeon: Bertrand Jay Estimated Blood Loss (ml): 3 Pathology: none sent Condition: stable Disposition: PACU Description of Procedure: The patient was placed on the operative table in the supine position. He received IV sedation. The right chest wall was prepped and draped in sterile fashion. The skin was anesthetized 1% local Xylocaine. The skin was incised over the port site. Using electrocautery the port was dissected free. There was no bleeding seen. The skin was closed interrupted 3-0 Monocryl suture. Dermabond dressing applied. Patient T tolerated the procedure well. He was sent to recovery room in stable condition.
[2024-03-16 08:22] VITALS: BP 112/64; PULSE 50; RESP 15
== END 2024-03-16 08:58 | disposition home or self-care (01) ==
LOC: OR 06:16
PROVIDERS: ATTEND Surgery
DX: Z45.2 Encounter for adjustment and management of vascular access device (principal); Z85.048 Personal history of other malignant neoplasm of rectum, rectosigmoid junction, and anus; I10 Essential (primary) hypertension; K21.9 Gastro-esophageal reflux disease without esophagitis; F17.200 Nicotine dependence, unspecified, uncomplicated; Z79.899 Other long term (current) drug therapy
CPT/HCPCS: 85025; 36590; J2250; J1100; J0690; J2405; J2001; J3010; J2704